=== PATIENT | female | born 1995 | race Caucasian/White ===

== ENCOUNTER 2020-12-31 15:55 | Emergency (ER) | payer OTHER ==
[2020-12-31 16:40] LABS: #Monocytes 0.5 10x3/uL (0.0-1.1); #Neutrophils 4.4 10x3/uL (1.5-8.4); %Basophils 0.3 % (0.0-2.0); %Eosinophils 0.4 % (0.0-6.0); %Lymphocytes 33.1 % (18.0-47.0); %Monocytes 6.5 % (0.0-10.0); %Neutrophils 59.6 % (40.0-75.0); Mean Corpuscular HGB CONC 33.6 g/dL (32.0-36.0); Mean Corpuscular Volume 92.1 fl (81.6-98.3); Mean Platelet Volume 10.2 fl (7.4-10.4); Platelet Count 349 10x3/uL (150-450); RBC Distribution Width 11.7 % (11.5-14.5); White Blood Cell (WBC) Count 7.4 10x3/uL (3.5-10.5)
[2020-12-31 16:53] LABS: BHCG - Serum Negative (NEGATIVE); Pregs Control Background? CLEAR/WHITE (CLR/WHITE); Pregs Control Bar Appear? YES (CONTROL BAR)
[2020-12-31 16:58] LABS: Bilirubin Neg (Negative); Blood, Urine Negative (Negative); Clarity Clear (Clear); Glucose, Urine (Dipstick) Normal (Negative); Ketone, Urine Negative (Negative); Leukocyte 25 (Negative); Nitrite Negative (Negative); Protein, Urine (Dipstick) Negative (Neg-Trace); Urobilinogen Normal mg/dL (Less than 2)
[2020-12-31 17:02] LABS: ALT (SGPT) 36 U/L (8-55); AST (SGOT) 27 U/L (5-34); Acetaminophen Less than 6.0 mcg/mL (10.0-30.0); Albumin 4.5 g/dL (3.5-5.0); Alcohol Less than 10 mg/dL (Less than 10); Alkaline Phosphatase 66 U/L (40-110); Anion Gap 12 mmol/L (10-20); BUN (Urea Nitrogen) 12 mg/dL (7.0-18.7); Bilirubin, Total 0.3 mg/dL (0.2-1.2); Calc. Creatinine Clearance 0 mL/min (70-130); Calcium 9.2 mg/dL (7.8-10.44); Carbon Dioxide 23 mmol/L (22-29); Chloride 108 mmol/L (98-107); Globulin 2.7 g/dL (2.4-3.5); Glucose 81 mg/dL (70-105); Protein, Total 7.2 g/dL (6.0-8.3); Salicylate Less than 8.0 mg/dL (15.0-30.0); Sodium 139 mmol/L (136-145)
[2020-12-31 17:06] LABS: Amphetamine Not Detected (NotDetected); Barbiturates Screen Not Detected (NotDetected); Benzodiazepine Screen Not Detected (NotDetected); Cocaine Metabolite Screen Not Detected (NotDetected); Methadone Not Detected (NotDetected); Methamphetamine Not Detected (NotDetected); Opiate Screen Not Detected (NotDetected); Oxycodone Screen Not Detected (NotDetected); Phencyclidine (PCP) Not Detected (NotDetected); THC/Cannabinoid Screen Not Detected (NotDetected); Tricyclic Screen Not Detected (NotDetected)
[2020-12-31 17:09] LABS: Bacteria/HPF 1+ HPF (None Seen); RBC/HPF 0-3 HPF (0-3)
== END 2020-12-31 18:46 | disposition home or self-care (01) ==
LOC: CSHERS 15:55
DX: R55 Syncope and collapse (principal); R07.89 Other chest pain
CPT/HCPCS: 36415; 71045; 80053; 80306; 80307; 81003; 81015; 83605; 84484; 84703; 85025; 93005

== ENCOUNTER 2021-07-22 14:22 | Inpatient (IN) | payer OTHER ==
[2021-07-22] MEDS ORDERED: Ondansetron ODT 4 MG TAB PO PRN (15:06)
[2021-07-22] MEDS ORDERED: Ondansetron PF 4 MG/2 ML Vial IVP PRN (15:06)
[2021-07-22] MEDS ORDERED: Calcium Carbonate 500 MG ChewTAB PO PRN (15:06)
[2021-07-22 15:20] VITALS: BMI 25.1
[2021-07-22] MEDS: Sodium Chloride 0.9% 1,000 ML IV SCH ×2 (15:28→22:53)
[2021-07-22] MEDS: Morphine 4 MG/ML VIAL SLOW IVP PRN ×2 (15:29→19:48)
[2021-07-22] MEDS: Acetaminophen 500 MG TAB PO PRN (18:05)
[2021-07-23] MEDS: Morphine 4 MG/ML VIAL SLOW IVP PRN ×3 (07:29→20:08)
[2021-07-23] MEDS: Acetaminophen 500 MG TAB PO PRN ×2 (07:31→14:14)
[2021-07-23] MEDS: Sodium Chloride 0.9% 1,000 ML IV SCH ×3 (07:31→20:12)
[2021-07-23] MEDS ORDERED: cefTRIAXone\\ROCEPHIN 2 GM in Sodium Chloride 0.9% 100 ML IVPB SCH (14:00)
[2021-07-23] MEDS ORDERED: Acetaminophen 500 MG TAB PO SCH (16:45)
[2021-07-23] MEDS: Cefepime 1 GM in Sodium Chloride 0.9% 100 ML IVPB SCH (17:53)
[2021-07-23] MEDS: Acetaminophen 500 MG TAB PO SCH (20:07)
[2021-07-24] MEDS: Acetaminophen 500 MG TAB PO SCH ×4 (00:55→21:33)
[2021-07-24] MEDS: Cefepime 1 GM in Sodium Chloride 0.9% 100 ML IVPB SCH ×2 (06:02→17:31)
[2021-07-24] MEDS: Sodium Chloride 0.9% 1,000 ML IV SCH ×2 (06:03→17:16)
[2021-07-24] MEDS: Morphine 4 MG/ML VIAL SLOW IVP PRN ×5 (06:08→22:41)
[2021-07-25 02:28] LABS: SARS-CoV-2 NAA Rapid Test Not Detected (NotDetected)
[2021-07-25] MEDS: Acetaminophen 500 MG TAB PO SCH ×4 (04:20→22:00)
[2021-07-25] MEDS: Cefepime 1 GM in Sodium Chloride 0.9% 100 ML IVPB SCH ×2 (05:33→17:32)
[2021-07-25] MEDS ORDERED: Furosemide 20 MG/2 ML VIAL SLOW IVP SCH (09:45)
[2021-07-25] MEDS: Sodium Chloride 0.9% 1,000 ML IV SCH (20:36)
[2021-07-26] MEDS: Cefepime 1 GM in Sodium Chloride 0.9% 100 ML IVPB SCH ×2 (06:12→18:16)
[2021-07-26] MEDS: Acetaminophen 500 MG TAB PO SCH ×5 (06:12→23:50)
[2021-07-26 08:24] LABS: #Eosinphils 0.1 10x3/uL (0.0-0.5); #Monocytes 0.4 10x3/uL (0.0-1.1); #Neutrophils 3.1 10x3/uL (1.5-8.4); %Basophils 0.2 % (0.0-2.0); %Eosinophils 1.4 % (0.0-6.0); %Lymphocytes 18.7 % (18.0-47.0); %Monocytes 8.1 % (0.0-10.0); %Neutrophils 70.9 % (40.0-75.0); Hemoglobin 9.6 g/dL (12.0-15.5); Mean Corpuscular HGB CONC 33.3 g/dL (32.0-36.0); Mean Corpuscular Hemoglobin 31.3 pg (27.0-33.0); Mean Corpuscular Volume 93.8 fl (81.6-98.3); Mean Platelet Volume 9.6 fl (7.4-10.4); Platelet Count 275 10x3/uL (150-450); RBC Distribution Width 12.4 % (11.5-14.5); Red Blood Cell (RBC) Count 3.07 10x6/uL (3.90-5.03); White Blood Cell (WBC) Count 4.3 10x3/uL (3.5-10.5)
[2021-07-26] MEDS: Furosemide 20 MG/2 ML VIAL SLOW IVP SCH (12:55)
[2021-07-27] MEDS: Cefepime 1 GM in Sodium Chloride 0.9% 100 ML IVPB SCH (05:10)
[2021-07-27] MEDS: Acetaminophen 500 MG TAB PO SCH (05:56)
[2021-07-27] MEDS: Furosemide 20 MG/2 ML VIAL SLOW IVP SCH (05:56)
[2021-07-27] MEDS ORDERED: Acetaminophen 500 MG TAB PO PRN (10:27)
[2021-07-27] MEDS: Furosemide 20 MG TAB PO SCH (14:26)
[2021-07-27] MEDS: Cephalexin 500 MG CAP PO SCH (21:43)
[2021-07-28] MEDS: Cephalexin 500 MG CAP PO SCH (08:51)
[2021-07-28] MEDS: Furosemide 20 MG TAB PO SCH (08:51)
[2021-07-28 11:19] VITALS: BP 95/58; TEMP 98.2
== END 2021-07-28 13:10 | disposition home or self-care (01) | DRG 831 ==
LOC: CSHANTE 14:22
PROVIDERS: ADMIT Student in an Organized Health Care Education/Training Program; ATTEND Obstetrics & Gynecology
DX: O23.02 Infections of kidney in pregnancy, second trimester (principal); J96.01 Acute respiratory failure with hypoxia; J81.0 Acute pulmonary edema; J98.11 Atelectasis; J90 Pleural effusion, not elsewhere classified; Z3A.25 25 weeks gestation of pregnancy; Z20.822 Contact with and (suspected) exposure to COVID-19; F32.A Depression, unspecified; J45.909 Unspecified asthma, uncomplicated; O99.342 Other mental disorders complicating pregnancy, second trimester; O99.512 Diseases of the respiratory system complicating pregnancy, second trimester; Z90.49 Acquired absence of other specified parts of digestive tract; Z79.899 Other long term (current) drug therapy; Z88.8 Allergy status to other drugs, medicaments and biological substances; Z91.018 Allergy to other foods; Z87.891 Personal history of nicotine dependence
CPT/HCPCS: 71046; 76770; 83880; 85025; 93306; 94640; 94760; J0692; J0696; J1940; J2270; J3490; J7050; J7620; Q0162; U0003; U0005

== ENCOUNTER 2021-09-21 11:20 | Emergency (ER) | payer OTHER | END 2021-09-21 11:56 | disposition home or self-care (01) | LOC: CSHERS 11:20 | DX: O99.893 Other specified diseases and conditions complicating puerperium (principal); H66.92 Otitis media, unspecified, left ear; O99.619 Diseases of the digestive system complicating pregnancy, unspecified trimester; K02.9 Dental caries, unspecified; Z3A.00 Weeks of gestation of pregnancy not specified | CPT/HCPCS: 99283 ==

== ENCOUNTER 2021-10-22 19:44 | Day surgery (SDC) | payer OTHER ==
[2021-10-22 20:10] VITALS: BMI 27.7
== END 2021-10-22 20:33 | disposition home or self-care (01) ==
LOC: MERGE 19:44 → CSHLD/OP 19:44
PROVIDERS: ATTEND Obstetrics & Gynecology
DX: Z36.9 Encounter for antenatal screening, unspecified (principal); Z3A.00 Weeks of gestation of pregnancy not specified
CPT/HCPCS: 99282

== ENCOUNTER 2021-10-23 10:03 | Inpatient (IN) | payer OTHER ==
[2021-10-23] MEDS ORDERED: Bicitra 30 ML UDCUP PO PRN (10:41)
[2021-10-23] MEDS ORDERED: Famotidine/PF 20 mg/2ml Vial SLOW IVP PRN (10:41)
[2021-10-23] MEDS ORDERED: CEFAZOLIN 2 GM in Sodium Chloride 0.9% 100 ML IVPB SCH (10:41)
[2021-10-23] MEDS ORDERED: Promethazine HCl 25 MG/ML VIAL IM PRN ×2 (10:41→11:41)
[2021-10-23] MEDS ORDERED: Ondansetron PF 4 MG/2 ML Vial IVP PRN ×3 (10:41→15:55)
[2021-10-23] MEDS ORDERED: Lactated Ringer's 1,000 ML IV SCH (10:41)
[2021-10-23] MEDS ORDERED: Acetaminophen 500 MG TAB PO PRN (10:41)
[2021-10-23] MEDS ORDERED: Butorphanol Tartrate 1 MG/ML VIAL SLOW IVP PRN (10:41)
[2021-10-23] MEDS ORDERED: hydrALAZINE 20 MG/ML VIAL SLOW IVP PRN ×2 (10:41→15:55)
[2021-10-23 11:07] LABS: Hemoglobin 10.3 g/dL (12.0-15.5); Mean Corpuscular HGB CONC 33.1 g/dL (32.0-36.0); Mean Corpuscular Hemoglobin 29.2 pg (27.0-33.0); Mean Corpuscular Volume 88.1 fl (81.6-98.3); Mean Platelet Volume 10.1 fl (7.4-10.4); Platelet Count 272 10x3/uL (150-450); RBC Distribution Width 13.2 % (11.5-14.5); Red Blood Cell (RBC) Count 3.53 10x6/uL (3.90-5.03); White Blood Cell (WBC) Count 6.8 10x3/uL (3.5-10.5)
[2021-10-23 11:31] LABS: SARS-CoV-2 NAA Rapid Test Not Detected (NotDetected)
[2021-10-23] MEDS ORDERED: Ondansetron PF 4 MG/2 ML Vial ONE (11:38)
[2021-10-23] MEDS ORDERED: Morphine PF 10 MG/10 ML VIAL ONE (11:38)
[2021-10-23] MEDS ORDERED: Oxytocin 10 UNITS/ML VIAL ONE (11:38)
[2021-10-23] MEDS ORDERED: Dexamethasone 4 mg/ml Vial ONE (11:38)
[2021-10-23] MEDS ORDERED: Ketorolac Tromethamine 30 MG/ML VIAL ONE (11:38)
[2021-10-23] MEDS ORDERED: PHENYLEPHRINE-NS 100 MCG/ML 10 ML SYRINGE ONE (11:38)
[2021-10-23 11:40] LABS: Syphilis Antibody Nonreactive (Nonreactive); Syphilis Antibody Index 0.04 S/CO (<1.00 Non-Reactive)
[2021-10-23] MEDS ORDERED: Moisturizing Cream (Eucerin) 113 GM JAR TOP PRN (11:41)
[2021-10-23] MEDS ORDERED: Meperidine HCl/PF 25 MG/ML VIAL SLOW IVP PRN (11:41)
[2021-10-23] MEDS ORDERED: Naloxone HCl 0.4 mg/ml Vial IVP PRN ×2 (11:41)
[2021-10-23] MEDS ORDERED: Ondansetron HCl/PF 4 MG/2 ML Vial IVP PRN (11:41)
[2021-10-23] MEDS ORDERED: Fentanyl 100 MCG/2 ML VIAL SLOW IVP PRN (11:41)
[2021-10-23] MEDS ORDERED: Promethazine HCl 25 MG SUPP PR PRN (11:41)
[2021-10-23] MEDS ORDERED: diphenhydrAMINE 50 MG/ML VIAL IVP PRN (11:41)
[2021-10-23] MEDS ORDERED: Naloxone HCl 0.4 mg/ml Vial IV PRN (11:41)
[2021-10-23] MEDS ORDERED: Ketorolac Tromethamine 30 MG/ML VIAL IVP SCH ×2 (11:45)
[2021-10-23] MEDS ORDERED: Communication Order-Pharmacy FS SCH (11:45)
[2021-10-23 12:23] LABS: HBSAg Index 0.23 S/CO (0-0.99); Hep B Surf Ag Non-Reactive S/CO (NonReactive)
[2021-10-23] MEDS ORDERED: Phytonadione Neonatal 1 MG/0.5 ML AMP ONE (13:09)
[2021-10-23] MEDS ORDERED: Erythromycin Base 0.5% Oint 1 GM TUBE ONE (13:09)
[2021-10-23] MEDS ORDERED: Hepatitis B Vaccine 10 MCG/0.5 ML SYR ONE (13:10)
[2021-10-23 15:11] VITALS: BMI 26.3
[2021-10-23] MEDS ORDERED: Acetaminophen 325 MG TAB PO PRN (15:55)
[2021-10-23] MEDS ORDERED: Simethicone Chewable 80 MG TAB PO PRN (15:55)
[2021-10-23] MEDS ORDERED: Boostrix 0.5 ML (Tdap) VIAL (>/=7 yrs of age) IM ONE (15:55)
[2021-10-23] MEDS ORDERED: diphenhydrAMINE 25 MG CAP PO PRN (15:55)
[2021-10-23] MEDS ORDERED: Lanolin Ointment 7 GM TUBE TOP PRN (15:55)
[2021-10-23] MEDS ORDERED: Bisacodyl 10 MG SUPP PR PRN (15:55)
[2021-10-23] MEDS ORDERED: Ibuprofen 800 MG TAB PO SCH (18:00)
[2021-10-23] MEDS: Ketorolac Tromethamine 30 MG/ML VIAL IVP PRN (18:21)
[2021-10-23] MEDS: Ferrous Sulfate 325 MG TAB PO SCH (19:40)
[2021-10-23] MEDS: Docusate 100 MG CAP PO SCH (20:32)
[2021-10-24] MEDS: HYDROcodone/Acetaminophen 5/325 mg Tablet PO PRN ×5 (00:48→21:10)
[2021-10-24 04:41] LABS: Hemoglobin 9.1 g/dL (12.0-15.5); Mean Corpuscular HGB CONC 32.4 g/dL (32.0-36.0); Mean Corpuscular Hemoglobin 28.7 pg (27.0-33.0); Mean Corpuscular Volume 88.6 fl (81.6-98.3); Platelet Count 244 10x3/uL (150-450); RBC Distribution Width 12.8 % (11.5-14.5); Red Blood Cell (RBC) Count 3.17 10x6/uL (3.90-5.03); White Blood Cell (WBC) Count 9.3 10x3/uL (3.5-10.5)
[2021-10-24] MEDS: Ketorolac Tromethamine 30 MG/ML VIAL IVP PRN (05:20)
[2021-10-24] MEDS: Ferrous Sulfate 325 MG TAB PO SCH ×2 (09:19→21:10)
[2021-10-24] MEDS: Docusate 100 MG CAP PO SCH ×2 (09:19→21:10)
[2021-10-24] MEDS: Prenatal Vitamin 1 TAB PO SCH (09:19)
[2021-10-24] MEDS: Ibuprofen 800 MG TAB PO SCH ×2 (15:21→22:56)
[2021-10-24] MEDS: Simethicone Chewable 80 MG TAB PO PRN (15:21)
[2021-10-25] MEDS: Ibuprofen 800 MG TAB PO SCH ×3 (05:05→21:47)
[2021-10-25] MEDS: Ferrous Sulfate 325 MG TAB PO SCH ×2 (08:59→21:46)
[2021-10-25] MEDS: Docusate 100 MG CAP PO SCH ×2 (08:59→21:46)
[2021-10-25] MEDS: HYDROcodone/Acetaminophen 5/325 mg Tablet PO PRN ×3 (08:59→17:10)
[2021-10-25] MEDS: Prenatal Vitamin 1 TAB PO SCH (08:59)
[2021-10-25] MEDS: Simethicone Chewable 80 MG TAB PO PRN (13:16)
[2021-10-26] MEDS: Ibuprofen 800 MG TAB PO SCH (05:46)
[2021-10-26 08:16] VITALS: BP 99/63; TEMP 97.9
[2021-10-26] MEDS: Prenatal Vitamin 1 TAB PO SCH (08:46)
[2021-10-26] MEDS: Ferrous Sulfate 325 MG TAB PO SCH (08:46)
[2021-10-26] MEDS: HYDROcodone/Acetaminophen 5/325 mg Tablet PO PRN (08:46)
[2021-10-26] MEDS: Simethicone Chewable 80 MG TAB PO PRN (08:46)
[2021-10-26] MEDS: Docusate 100 MG CAP PO SCH (08:46)
[2021-10-26] MEDS ORDERED: Hydrocortisone 1% Cream 30 GM TUBE TOP SCH (09:00)
== END 2021-10-26 12:10 | disposition home or self-care (01) | DRG 787 ==
LOC: CSHLD 10:03 → CSHPP 15:40
PROVIDERS: ADMIT Student in an Organized Health Care Education/Training Program; ATTEND Student in an Organized Health Care Education/Training Program
PROC: 10D00Z1 Extraction of Products of Conception, Low, Open Approach (ICD-10-PCS; principal; 2021-10-23)
DX: O34.211 Maternal care for low transverse scar from previous cesarean delivery (principal); O23.03 Infections of kidney in pregnancy, third trimester; Z37.0 Single live birth; Z3A.39 39 weeks gestation of pregnancy; Z20.822 Contact with and (suspected) exposure to COVID-19; O36.5930 Maternal care for other known or suspected poor fetal growth, third trimester, not applicable or unspecified; Z91.018 Allergy to other foods; F31.9 Bipolar disorder, unspecified; F41.9 Anxiety disorder, unspecified; Z88.8 Allergy status to other drugs, medicaments and biological substances; O99.344 Other mental disorders complicating childbirth; F43.10 Post-traumatic stress disorder, unspecified; L25.9 Unspecified contact dermatitis, unspecified cause; O99.73 Diseases of the skin and subcutaneous tissue complicating the puerperium; J45.909 Unspecified asthma, uncomplicated; O99.52 Diseases of the respiratory system complicating childbirth
CPT/HCPCS: 36415; 51702; 85027; 86762; 86780; 86850; 86900; 86901; 87340; 88307; J1100; J1200; J1885; J2274; J2405; J2590; U0002

== ENCOUNTER → 2022-01-15 | Emergency (ER) | payer OTHER ==
[~2022-01-15] MED LIST: Bicillin LA 1.2 MILLION UNITS/2 ML SYRINGE IM SCH; Dexamethasone 10 MG/ML VIAL ONE
== END ==
LOC: CSHERS 19:26
DX: J02.0 Streptococcal pharyngitis (principal)
CPT/HCPCS: 96372; 99283; J0561; J1100

== ENCOUNTER 2022-06-05 09:45 | Emergency (ER) | payer OTHER ==
[2022-06-05] MEDS ORDERED: Methocarbamol 500 MG TAB PO SCH ×2 (10:30)
[2022-06-05] MEDS ORDERED: Ketorolac Tromethamine 30 MG/ML VIAL ONE (11:34)
== END 2022-06-05 11:50 | disposition home or self-care (01) ==
LOC: CSHERS 09:45
DX: M62.830 Muscle spasm of back (principal)
CPT/HCPCS: 71045; 93005; J1885

== ENCOUNTER 2022-06-06 11:41 | Emergency (ER) | payer OTHER ==
[2022-06-06] MEDS ORDERED: Acetaminophen 500 MG TAB ONE (12:02)
== END 2022-06-06 13:00 | disposition home or self-care (01) ==
LOC: CSHERS 11:41
DX: M25.511 Pain in right shoulder (principal); V43.62XA Car passenger injured in collision with other type car in traffic accident, initial encounter; M62.830 Muscle spasm of back
CPT/HCPCS: 71045; 93005; 93010; J1885

== ENCOUNTER 2022-06-17 12:19 | Outpatient (CLI) | payer OTHER | END 2022-06-17 12:20 | disposition home or self-care (01) | LOC: CSHRAD 12:19 | PROVIDERS: ATTEND Family Medicine | DX: M25.512 Pain in left shoulder (principal) ==

== ENCOUNTER 2022-07-23 18:10 | Emergency (ER) | payer OTHER | END 2022-07-23 20:02 | disposition home or self-care (01) | LOC: CSHERS 18:10 | DX: J32.9 Chronic sinusitis, unspecified (principal) | CPT/HCPCS: 71045 ==

== ENCOUNTER 2022-09-03 17:10 | Emergency (ER) | payer OTHER ==
[2022-09-03] MEDS ORDERED: Ketorolac Tromethamine 30 MG/ML VIAL ONE (19:19)
[2022-09-03 20:28] LABS: #Monocytes 0.5 10x3/uL (0.0-1.1); #Neutrophils 4.7 10x3/uL (1.5-8.4); %Basophils 0.1 % (0.0-2.0); %Eosinophils 0.5 % (0.0-6.0); %Lymphocytes 32.5 % (18.0-47.0); %Neutrophils 60.8 % (40.0-75.0); Mean Corpuscular HGB CONC 33.2 g/dL (32.0-36.0); Mean Corpuscular Hemoglobin 29.3 pg (27.0-33.0); Mean Platelet Volume 10.2 fl (7.4-10.4); Platelet Count 335 10x3/uL (150-450); RBC Distribution Width 13.2 % (11.5-14.5); White Blood Cell (WBC) Count 7.7 10x3/uL (3.5-10.5)
[2022-09-03 20:43] LABS: ALT (SGPT) 28 U/L (8-55); AST (SGOT) 22 U/L (5-34); Albumin 4.1 g/dL (3.5-5.0); Alkaline Phosphatase 77 U/L (40-110); Anion Gap 12 mmol/L (10-20); BUN (Urea Nitrogen) 7 mg/dL (7.0-18.7); Bilirubin, Total 0.2 mg/dL (0.2-1.2); CK (CPK) 67 U/L (29-168); Calc. Creatinine Clearance 0 mL/min (70-130); Calcium 9.1 mg/dL (7.8-10.44); Carbon Dioxide 25 mmol/L (22-29); Chloride 107 mmol/L (98-107); Estimated GFR 121; Globulin 2.8 g/dL (2.4-3.5); Glucose 127 mg/dL (70-105); Potassium 3.6 mmol/L (3.5-5.1); Protein, Total 6.9 g/dL (6.0-8.3); Sodium 140 mmol/L (136-145)
== END 2022-09-03 21:38 | disposition home or self-care (01) ==
LOC: CSHERS 17:10
DX: M79.672 Pain in left foot (principal); R10.9 Unspecified abdominal pain
CPT/HCPCS: 80053; 82550; 85025; 96372; J1885

== ENCOUNTER 2023-08-23 09:59 | Emergency (ER) | payer OTHER, SELFPAY ==
[2023-08-23] MEDS ORDERED: Iopamidol 300 61% 100 ML VIAL FS ONE (10:20)
[2023-08-23 11:15] LABS: Bilirubin Neg (Negative); Blood, Urine 150 (Negative); Clarity Cloudy (Clear); Glucose, Urine (Dipstick) Normal (Negative); Ketone, Urine Negative (Negative); Leukocyte 100 (Negative); Nitrite Positive (Negative); Protein, Urine (Dipstick) Negative (Neg-Trace); Urobilinogen Normal mg/dL (Less than 2)
[2023-08-23 11:18] LABS: Pregnancy Test - Urine (BHCG) Negative (Negative); Pregu Control Background? CLEAR/WHITE (CLR/WHITE); Pregu Control Bar Appear? YES (CONTROL BAR)
[2023-08-23 11:39] LABS: Bacteria/HPF 4+ HPF (None Seen); CAUTI Indications for Culture Pelvic or flank pain
[2023-08-23 11:40] LABS: Urine Culture Reflex Yes Yes
== END 2023-08-23 12:18 | disposition home or self-care (01) ==
LOC: CSHERS 09:59
DX: M71.551 Other bursitis, not elsewhere classified, right hip (principal); N39.0 Urinary tract infection, site not specified
CPT/HCPCS: 74177; 81001; 81025; 87077; 87086; 87186; Q9967